=== PATIENT | female | born 1960 | race African-American/Black ===

== ENCOUNTER 2018-04-07 15:44 | Inpatient (IN) | payer MEDICAID ==
[~2018-04-07] VITALS: Ht 154.9 cm; Wt 59.0 kg
[~2018-04-07 15:44] MED LIST: ALBU6.7H INH; FLUT12AE IH; LEVO50TA60 PO; PULM50 HHN
[2018-04-07] MEDS ORDERED: METHYLPREDNISOLONE SOD SUCC 125 MG/2 ML VIAL IV STA (15:56)
[2018-04-07] MEDS ORDERED: ALBUTEROL (0.083%) 2.5MG/3ML NEB HHN STA (15:56)
[2018-04-07] MEDS ORDERED: IPRATROPIUM BROMIDE (0.02%) 0.5MG/2.5ML NEB HHN STA (15:56)
[2018-04-07 16:34] LABS: CHLORIDE 108 mEq/L (98-107)
[2018-04-07 16:37] LABS: BASOPHILS % 0.6 % (0.0-2.0); EOSINOPHILS % 2.4 % (0.0-5.0); HEMATOCRIT. 42.4 % (36.0-48.0); HEMOGLOBIN. 14.8 g/dL (12.0-16.0); LYMPHOCYTES % 49.4 % (20.0-50.0); MEAN CORPUSCULAR HEMOGLOBIN 29.3 pg (28.0-32.0); MEAN CORPUSCULAR VOLUME 83.8 fL (81.0-99.0); MEAN PLATELET VOLUME 9.9 fl (7.4-10.4); MONOCYTES % 4.4 % (2.0-8.0); NEUTROPHILS % 43.2 % (40.0-76.0); PLATELET 198 x1000/uL (130-400); RED BLOOD CELL COUNT 5.06 mill/uL (4.2-5.4); RED CELL DISTRIBUTION WIDTH 14.9 % (11.6-14.6)
[2018-04-07] MEDS ORDERED: IPRATROPIUM/ALBUTEROL 0.5-3(2.5)MG/3ML NEB HHN PRN (17:45)
[2018-04-07] MEDS ORDERED: ALBUTEROL (0.083%) 2.5MG/3ML NEB HHN ONE (17:45)
[2018-04-07 19:47] LABS: CREATINE KINASE MB FRACTION 2.1 ng/mL (0.5-3.6)
[2018-04-07 22:28] LABS: *AMPHETAMINES SCREEN URINE NEGATIVE (NEGATIVE); *BARBITURATES SCREEN URINE NEGATIVE (NEGATIVE); *BENZODIAZEPINES SCREEN URINE NEGATIVE (NEGATIVE); *COCAINE SCREEN URINE PRESUMTIVE POSITIVE (NEGATIVE); CANNABINOID URINE SCREEN NEGATIVE (NEGATIVE); METHADONE URINE SCREEN NEGATIVE (NEGATIVE); OPIATES URINE SCREEN NEGATIVE (NEGATIVE); PHENCYCLIDINE URINE SCREEN NEGATIVE (NEGATIVE)
[2018-04-07 22:45] VITALS: BP 109/79
[2018-04-08] VITALS: BP 109/79
[2018-04-08] MEDS: METHYLPREDNISOLONE SOD SUCC 40 MG/ML VIAL IV SCH ×2 (00:52→08:58)
[2018-04-08] MEDS: IPRATROPIUM/ALBUTEROL 0.5-3(2.5)MG/3ML NEB HHN SCH ×6 (03:00→23:55)
[2018-04-08 04:00] VITALS: BP 115/75
[2018-04-08 07:26] LABS: BASOPHILS % 0.1 % (0.0-2.0); HEMATOCRIT. 40.6 % (36.0-48.0); HEMOGLOBIN. 14.3 g/dL (12.0-16.0); LYMPHOCYTES % 22.2 % (20.0-50.0); MEAN CORPUSCULAR HEMOGLOBIN 29.8 pg (28.0-32.0); MEAN CORPUSCULAR VOLUME 84.3 fL (81.0-99.0); MONOCYTES % 1.9 % (2.0-8.0); NEUTROPHILS % 75.8 % (40.0-76.0); PLATELET 191 x1000/uL (130-400); RED BLOOD CELL COUNT 4.82 mill/uL (4.2-5.4); RED CELL DISTRIBUTION WIDTH 15.1 % (11.6-14.6)
[2018-04-08 07:43] LABS: CHLORIDE 109 mEq/L (98-107)
[2018-04-08 08:00] VITALS: BP 145/100
[2018-04-08] MEDS ORDERED: SODIUM CHLORIDE 45ML SPRAY NS PRN (09:30)
[2018-04-08] MEDS: NICOTINE 7MG PATCH TD SCH (09:30)
[2018-04-08] MEDS ORDERED: LEVOTHYROXINE SODIUM 25MCG TABLET PO SCH (09:30)
[2018-04-08] MEDS ORDERED: BENZONATATE 100MG CAPSULE PO PRN (09:30)
[2018-04-08 12:00] VITALS: BP 156/64
[2018-04-08] MEDS: OMEPRAZOLE 20MG CAPSULE EXTENDED RELEASE PO SCH (13:20)
[2018-04-08 16:00] VITALS: BP 125/75
[2018-04-08] MEDS: MONTELUKAST SODIUM 10MG TABLET PO SCH (16:52)
[2018-04-08 20:04] VITALS: BP 141/82
[2018-04-09] VITALS: BP 116/56
[2018-04-09] MEDS: IPRATROPIUM/ALBUTEROL 0.5-3(2.5)MG/3ML NEB HHN SCH ×5 (03:00→21:03)
[2018-04-09 04:00] VITALS: BP 137/77
[2018-04-09] MEDS: OMEPRAZOLE 20MG CAPSULE EXTENDED RELEASE PO SCH (06:42)
[2018-04-09] MEDS: LEVOTHYROXINE SODIUM 50MCG TABLET PO SCH (06:42)
[2018-04-09 08:00] VITALS: BP 154/88
[2018-04-09] MEDS ORDERED: METHYLPREDNISOLONE SOD SUCC 40 MG/ML VIAL IV SCH (09:00)
[2018-04-09] MEDS: NICOTINE 7MG PATCH TD SCH (09:00)
[2018-04-09] MEDS: GUAIFENESIN 600MG ER TABLET PO SCH ×2 (11:01→21:14)
[2018-04-09 12:00] VITALS: BP 120/78
[2018-04-09 16:00] VITALS: BP 118/83
[2018-04-09] MEDS: MONTELUKAST SODIUM 10MG TABLET PO SCH (17:34)
[2018-04-09 20:00] VITALS: BP 116/79
[2018-04-10] VITALS: BP 102/57
[2018-04-10] MEDS: IPRATROPIUM/ALBUTEROL 0.5-3(2.5)MG/3ML NEB HHN SCH ×4 (01:03→11:27)
[2018-04-10 04:00] VITALS: BP 116/57
[2018-04-10] MEDS: LEVOTHYROXINE SODIUM 50MCG TABLET PO SCH (06:29)
[2018-04-10 08:00] VITALS: BP 110/53
[2018-04-10] MEDS: GUAIFENESIN 600MG ER TABLET PO SCH (08:40)
[2018-04-10] MEDS ORDERED: PREDNISONE 20MG TABLET PO SCH (09:00)
[2018-04-10] MEDS: NICOTINE 7MG PATCH TD SCH (09:00)
[2018-04-10] MEDS ORDERED: FAMOTIDINE 20MG TABLET PO SCH (09:00)
[2018-04-10 12:00] VITALS: BP 111/64
[2018-04-10 16:00] VITALS: BP 122/61
[2018-04-10] MEDS: MONTELUKAST SODIUM 10MG TABLET PO SCH (16:43)
[2018-04-10 17:28] VITALS: BP 110/53
== END 2018-04-10 18:33 | disposition home or self-care (01) | DRG 816 ==
LOC: ER 15:44 → 8WST 17:01 → EDBEDREQ 17:03 → ENRESERV 21:40 → CANRESERV 21:40 → ENRESERV 21:54
PROVIDERS: ADMIT Internal Medicine; ATTEND Internal Medicine
DX: T40.5X1A Poisoning by cocaine, accidental (unintentional), initial encounter (principal); J96.00 Acute respiratory failure, unspecified whether with hypoxia or hypercapnia; E44.0 Moderate protein-calorie malnutrition; J44.1 Chronic obstructive pulmonary disease with (acute) exacerbation; E87.8 Other disorders of electrolyte and fluid balance, not elsewhere classified; J45.901 Unspecified asthma with (acute) exacerbation; J68.0 Bronchitis and pneumonitis due to chemicals, gases, fumes and vapors; E89.0 Postprocedural hypothyroidism; F14.10 Cocaine abuse, uncomplicated; F17.210 Nicotine dependence, cigarettes, uncomplicated; I10 Essential (primary) hypertension; Z60.2 Problems related to living alone; E78.5 Hyperlipidemia, unspecified; R73.03 Prediabetes; Z99.81 Dependence on supplemental oxygen; Z68.24 Body mass index [BMI] 24.0-24.9, adult; Z71.6 Tobacco abuse counseling; Z88.8 Allergy status to other drugs, medicaments and biological substances; Y92.098 Other place in other non-institutional residence as the place of occurrence of the external cause; Z82.49 Family history of ischemic heart disease and other diseases of the circulatory system; Z71.51 Drug abuse counseling and surveillance of drug abuser
CPT/HCPCS: 36415; 71045; 80048; 80061; 80305; 82550; 82553; 83036; 83880; 84443; 84484; 87804; 93005; 94640; 99285; J2920; J2930; J7512; J7611; J7620

== ENCOUNTER 2018-11-17 23:38 | Inpatient (IN) | payer MEDICAID ==
[~2018-11-17] VITALS: Ht 149.9 cm; Wt 60.8 kg
[2018-11-18] MEDS ORDERED: ONDANSETRON HCL 4MG/2ML INJ IV STA (00:37)
[2018-11-18] MEDS ORDERED: MORPHINE SULFATE 4 MG/ML CPJ (NOT FOR IM USE) IV STA (00:37)
[2018-11-18] MEDS ORDERED: NITROGLYCERIN OINT 1GM/INCH UDPKT TD ONE (00:45)
[2018-11-18] MEDS ORDERED: ASPIRIN 81MG TABLET PO ONE (00:45)
[2018-11-18 01:18] LABS: BASOPHILS % 0.5 % (0.0-2.0); EOSINOPHILS % 0.9 % (0.0-5.0); HEMATOCRIT. 43.6 % (36.0-48.0); HEMOGLOBIN. 15.2 g/dL (12.0-16.0); LYMPHOCYTES % 43.8 % (20.0-50.0); MEAN CORPUSCULAR HEMOGLOBIN 29.9 pg (28.0-32.0); MEAN CORPUSCULAR VOLUME 85.6 fL (81.0-99.0); MEAN PLATELET VOLUME 9.2 fl (7.4-10.4); NEUTROPHILS % 50.8 % (40.0-76.0); PLATELET 199 x1000/uL (130-400); RED BLOOD CELL COUNT 5.09 mill/uL (4.2-5.4); RED CELL DISTRIBUTION WIDTH 14.5 % (11.6-14.6)
[2018-11-18 01:26] LABS: CHLORIDE 112 mEq/L (98-107)
[2018-11-18 01:33] LABS: *AMPHETAMINES SCREEN URINE NEGATIVE (NEGATIVE); *BARBITURATES SCREEN URINE NEGATIVE (NEGATIVE); *BENZODIAZEPINES SCREEN URINE NEGATIVE (NEGATIVE); *COCAINE SCREEN URINE PRESUMTIVE POSITIVE (NEGATIVE); METHADONE URINE SCREEN NEGATIVE (NEGATIVE); OPIATES URINE SCREEN NEGATIVE (NEGATIVE)
[2018-11-18 01:34] LABS: CANNABINOID URINE SCREEN NEGATIVE (NEGATIVE); PHENCYCLIDINE URINE SCREEN NEGATIVE (NEGATIVE)
[2018-11-18 10:56] VITALS: BP 117/72
[2018-11-18 12:00] VITALS: BP 115/74
[2018-11-18] MEDS ORDERED: ONDANSETRON HCL 4MG/2ML INJ IV PRN (12:00)
[2018-11-18] MEDS ORDERED: HYDROCODONE/ACETAMINOPHEN 5/325MG TABLET PO PRN (12:00)
[2018-11-18] MEDS ORDERED: IPRATROPIUM/ALBUTEROL 0.5-3(2.5)MG/3ML NEB INH PRN (12:00)
[2018-11-18] MEDS ORDERED: ACETAMINOPHEN 325MG TABLET PO PRN (12:00)
[2018-11-18] MEDS ORDERED: LORAZEPAM 0.5MG TABLET PO PRN (12:00)
[2018-11-18] MEDS ORDERED: CLONIDINE 0.1MG TABLET PO PRN (12:00)
[2018-11-18 17:04] VITALS: BP 114/77
[2018-11-18 20:00] VITALS: BP 119/69
[2018-11-18 20:55] LABS: CREATINE KINASE MB FRACTION 1.2 ng/mL (0.5-3.6)
[2018-11-19] VITALS: BP 116/80
[2018-11-19 04:00] VITALS: BP 132/84
[2018-11-19 08:00] VITALS: BP 136/83
[2018-11-19] MEDS ORDERED: LEVOTHYROXINE SODIUM 50MCG TABLET PO SCH (09:00)
[2018-11-19 09:12] LABS: BASOPHILS % 0.6 % (0.0-2.0); EOSINOPHILS % 1.7 % (0.0-5.0); HEMATOCRIT. 41.9 % (36.0-48.0); HEMOGLOBIN. 14.5 g/dL (12.0-16.0); LYMPHOCYTES % 51.4 % (20.0-50.0); MEAN CORPUSCULAR HEMOGLOBIN 29.9 pg (28.0-32.0); MEAN CORPUSCULAR VOLUME 86.3 fL (81.0-99.0); MEAN PLATELET VOLUME 9.7 fl (7.4-10.4); MONOCYTES % 6.2 % (2.0-8.0); NEUTROPHILS % 40.1 % (40.0-76.0); PLATELET 206 x1000/uL (130-400); RED BLOOD CELL COUNT 4.85 mill/uL (4.2-5.4); RED CELL DISTRIBUTION WIDTH 14.5 % (11.6-14.6)
[2018-11-19 10:11] LABS: CHLORIDE 114 mEq/L (98-107)
[2018-11-19 10:16] LABS: PHOSPHORUS 3.3 mg/dL (2.5-4.9)
[2018-11-19 10:17] LABS: LDL CHOLESTEROL 56 mg/dL (5-100)
[2018-11-19 10:19] LABS: HDL CHOLESTEROL 55 mg/dL (40-59)
[2018-11-19 12:00] VITALS: BP 126/74
[2018-11-19 13:32] VITALS: BP 148/86
== END 2018-11-19 14:00 | disposition home or self-care (01) | DRG 816 ==
LOC: ER 23:38 → 7WST 11-18 03:03 → EDBEDREQTM 11-18 03:08 → EDBEDREQ 11-18 03:08 → ENRESERV 11-18 10:02
PROVIDERS: ADMIT Internal Medicine; ATTEND Internal Medicine
DX: T40.5X1A Poisoning by cocaine, accidental (unintentional), initial encounter (principal); J96.01 Acute respiratory failure with hypoxia; J68.0 Bronchitis and pneumonitis due to chemicals, gases, fumes and vapors; E05.00 Thyrotoxicosis with diffuse goiter without thyrotoxic crisis or storm; F17.200 Nicotine dependence, unspecified, uncomplicated; F14.90 Cocaine use, unspecified, uncomplicated; E89.0 Postprocedural hypothyroidism; E78.5 Hyperlipidemia, unspecified; I10 Essential (primary) hypertension; F19.10 Other psychoactive substance abuse, uncomplicated; Z91.19 Patient's noncompliance with other medical treatment and regimen; Z88.8 Allergy status to other drugs, medicaments and biological substances; Z79.51 Long term (current) use of inhaled steroids; Z79.899 Other long term (current) drug therapy; Z71.51 Drug abuse counseling and surveillance of drug abuser; Y92.89 Other specified places as the place of occurrence of the external cause
CPT/HCPCS: 36415; 71045; 80048; 80061; 80305; 82550; 82553; 83605; 83735; 83880; 84100; 84484; 87804; 93005; 93306; 96374; 99285; J2270; J2405

== ENCOUNTER 2022-08-19 08:51 | Inpatient (IN) | payer MEDICAID, OTHER ==
[~2022-08-19] VITALS: Ht 149.9 cm; Wt 48.5 kg
[~2022-08-19 08:51] MED LIST changes: -ALBU6.7H INH; +ALBU6.7H15 INH; -FLUT12AE IH
[2022-08-19] MEDS ORDERED: IPRATROPIUM BROMIDE (0.02%) 0.5MG/2.5ML NEB HHN STA (09:09)
[2022-08-19] MEDS ORDERED: METHYLPREDNISOLONE SOD SUCC 125 MG/2 ML VIAL IV STA (09:09)
[2022-08-19] MEDS ORDERED: ALBUTEROL (0.083%) 2.5MG/3ML NEB HHN STA (09:09)
[2022-08-19 09:58] LABS: BASOPHILS % 0.4 % (0.0-2.0); EOSINOPHILS % 0.6 % (0.0-5.0); HEMATOCRIT. 48.6 % (36.0-48.0); HEMOGLOBIN. 16.9 g/dL (12.0-16.0); MEAN CORPUSCULAR HEMOGLOBIN 30.8 pg (28.0-32.0); MEAN CORPUSCULAR VOLUME 88.8 fL (81.0-99.0); MEAN PLATELET VOLUME 9.6 fl (7.4-10.4); MONOCYTES % 3.9 % (2.0-8.0); NEUTROPHILS % 65.1 % (40.0-76.0); PLATELET 172 x1000/uL (130-400); RED BLOOD CELL COUNT 5.47 mill/uL (4.2-5.4); RED CELL DISTRIBUTION WIDTH 15.3 % (11.6-14.6)
[2022-08-19 10:17] LABS: CHLORIDE 111 mEq/L (98-107)
[2022-08-19 10:29] LABS: ETHANOL BLOOD < 10 mg/dL
[2022-08-19] MEDS ORDERED: ASPIRIN 325MG EC TABLET PO NR (12:00)
[2022-08-19] MEDS ORDERED: IPRATROPIUM/ALBUTEROL 0.5-3(2.5)MG/3ML NEB HHN PRN (15:00)
[2022-08-19] MEDS ORDERED: ACETAMINOPHEN 325MG TABLET PO PRN (15:00)
[2022-08-19] MEDS ORDERED: ONDANSETRON HCL 4MG/2ML INJ IV PRN (15:00)
[2022-08-19] MEDS ORDERED: DIPHENHYDRAMINE 50MG/ML VIAL IV PRN (15:00)
[2022-08-19] MEDS ORDERED: CLONIDINE 0.1MG TABLET PO PRN (15:00)
[2022-08-19 15:45] VITALS: BP 145/85
[2022-08-19] MEDS: METHYLPREDNISOLONE SOD SUCC 125 MG/2 ML VIAL IV SCH ×2 (16:08→21:08)
[2022-08-19] MEDS ORDERED: IPRATROPIUM/ALBUTEROL 0.5-3(2.5)MG/3ML NEB HHN SCH (18:00)
[2022-08-19 20:00] VITALS: BP 125/79
[2022-08-19] MEDS ORDERED: ALBUTEROL (0.083%) 2.5MG/3ML NEB HHN PRN (23:45)
[2022-08-19] MEDS ORDERED: IPRATROPIUM BROMIDE (0.02%) 0.5MG/2.5ML NEB HHN PRN (23:45)
[2022-08-20] VITALS: BP 118/77
[2022-08-20] MEDS: IPRATROPIUM BROMIDE (0.02%) 0.5MG/2.5ML NEB HHN SCH ×3 (03:18→20:41)
[2022-08-20] MEDS: ALBUTEROL (0.083%) 2.5MG/3ML NEB HHN SCH ×4 (03:18→20:41)
[2022-08-20] MEDS: METHYLPREDNISOLONE SOD SUCC 125 MG/2 ML VIAL IV SCH ×4 (03:37→21:37)
[2022-08-20 04:00] VITALS: BP 144/88
[2022-08-20 04:55] LABS: *AMPHETAMINES SCREEN URINE NEGATIVE (NEGATIVE); *BARBITURATES SCREEN URINE NEGATIVE (NEGATIVE); *BENZODIAZEPINES SCREEN URINE NEGATIVE (NEGATIVE); *COCAINE SCREEN URINE PRESUMTIVE POSITIVE (NEGATIVE); CANNABINOID URINE SCREEN NEGATIVE (NEGATIVE); METHADONE URINE SCREEN NEGATIVE (NEGATIVE); OPIATES URINE SCREEN NEGATIVE (NEGATIVE); PHENCYCLIDINE URINE SCREEN NEGATIVE (NEGATIVE)
[2022-08-20 05:42] LABS: BASOPHILS % 0.1 % (0.0-2.0); HEMATOCRIT. 48.5 % (36.0-48.0); HEMOGLOBIN. 16.5 g/dL (12.0-16.0); LYMPHOCYTES % 10.9 % (20.0-50.0); MEAN CORPUSCULAR HEMOGLOBIN 29.9 pg (28.0-32.0); MEAN CORPUSCULAR VOLUME 87.7 fL (81.0-99.0); MEAN PLATELET VOLUME 9.9 fl (7.4-10.4); MONOCYTES % 2.3 % (2.0-8.0); NEUTROPHILS % 86.7 % (40.0-76.0); PLATELET 183 x1000/uL (130-400); RED BLOOD CELL COUNT 5.53 mill/uL (4.2-5.4); RED CELL DISTRIBUTION WIDTH 15.3 % (11.6-14.6)
[2022-08-20 06:00] LABS: CHLORIDE 111 mEq/L (98-107)
[2022-08-20 10:48] VITALS: BP 151/92
[2022-08-20 12:00] VITALS: BP 136/78
[2022-08-20] MEDS ORDERED: GUAIFENESIN-DM 200MG-20MG/10ML UDC PO PRN (15:45)
[2022-08-20 16:00] VITALS: BP 149/84
[2022-08-20 20:00] VITALS: BP 133/71
[2022-08-21] VITALS: BP 148/81
[2022-08-21] MEDS: IPRATROPIUM BROMIDE (0.02%) 0.5MG/2.5ML NEB HHN SCH ×3 (01:41→14:25)
[2022-08-21] MEDS: ALBUTEROL (0.083%) 2.5MG/3ML NEB HHN SCH ×3 (01:41→14:26)
[2022-08-21] MEDS: METHYLPREDNISOLONE SOD SUCC 125 MG/2 ML VIAL IV SCH ×2 (03:19→09:13)
[2022-08-21 04:00] VITALS: BP 132/76
[2022-08-21] MEDS ORDERED: LEVOTHYROXINE SODIUM 50MCG TABLET PO SCH (06:40)
[2022-08-21] MEDS ORDERED: FAMO20TA8 MT (13:17)
[2022-08-21] MEDS ORDERED: PRED10TA MT (13:17)
[2022-08-21 14:38] VITALS: BP 142/82
[2022-08-21] MEDS ORDERED: PREDNISONE 20MG TABLET PO SCH (17:00)
== END 2022-08-21 15:35 | disposition home or self-care (01) | DRG 816 ==
LOC: ER 09:03 → 7EST 11:27
PROVIDERS: ADMIT Internal Medicine; ATTEND Internal Medicine
DX: T40.5X1A Poisoning by cocaine, accidental (unintentional), initial encounter (principal); J96.01 Acute respiratory failure with hypoxia; J68.0 Bronchitis and pneumonitis due to chemicals, gases, fumes and vapors; J84.9 Interstitial pulmonary disease, unspecified; I16.0 Hypertensive urgency; E05.00 Thyrotoxicosis with diffuse goiter without thyrotoxic crisis or storm; F14.10 Cocaine abuse, uncomplicated; I10 Essential (primary) hypertension; E78.5 Hyperlipidemia, unspecified; R32 Unspecified urinary incontinence; Z20.822 Contact with and (suspected) exposure to COVID-19; F17.210 Nicotine dependence, cigarettes, uncomplicated; Z82.49 Family history of ischemic heart disease and other diseases of the circulatory system; Z79.899 Other long term (current) drug therapy; Y92.89 Other specified places as the place of occurrence of the external cause
CPT/HCPCS: 36415; 71045; 80053; 80305; 80320; 83880; 84443; 84484; 85025; 87426; 93005; 93970; 94640; 99285; C9803; J2930; G0480